=== PATIENT | female | born 1990 | race Caucasian/White ===

== ENCOUNTER 2024-09-12 09:30 | Emergency (ER) | payer BC ==
[~2024-09-12] VITALS: Ht 160 cm; Wt 93.6 kg
[2024-09-12] MEDS ORDERED: IOPAMIDOL 370 MG/ML 100 ML INFUS..BTL INJ ONE (09:57)
[2024-09-12] MEDS ORDERED: AMLODIPINE BESY10 MG PO (09:58)
[2024-09-12] MEDS ORDERED: KETOROLAC TROME10 MG PO (11:55)
[2024-09-12] MEDS ORDERED: CIPRO500 MG PO (11:55)
[2024-09-12 12:09] VITALS: PULSE 67; RESP 18; TEMP 98.3; O2SAT 100
== END 2024-09-12 12:16 | disposition home or self-care (01) ==
LOC: FSED 09:38
DX: R10.30 Lower abdominal pain, unspecified (principal); N39.0 Urinary tract infection, site not specified; N20.0 Calculus of kidney; I10 Essential (primary) hypertension; M79.89 Other specified soft tissue disorders; E03.9 Hypothyroidism, unspecified; K76.0 Fatty (change of) liver, not elsewhere classified; E28.2 Polycystic ovarian syndrome
CPT/HCPCS: 74177; 80053; 81003; 81025; 85025; 85379; 99283; Q9967